=== PATIENT | female | born 1985 | race Caucasian/White ===

== ENCOUNTER 2017-05-14 04:02 | Emergency (ER) | payer OTHER ==
[~2017-05-14 04:02] MED LIST: NO MEDICATIONS; ZYRTEC-D TABLE1 EACH PO; [UNRECOGNIZED DRUG - OTHER]
== END 2017-05-14 05:35 | disposition home or self-care (01) ==
LOC: SED 04:02
DX: T25.211A Burn of second degree of right ankle, initial encounter (principal); T24.122A Burn of first degree of left knee, initial encounter; Z23 Encounter for immunization; X08.8XXA Exposure to other specified smoke, fire and flames, initial encounter; Y92.69 Other specified industrial and construction area as the place of occurrence of the external cause; Y99.0 Civilian activity done for income or pay
CPT/HCPCS: 90471; 90715; 99283